=== PATIENT | male | born 2000 | race Caucasian/White ===

== ENCOUNTER 2024-06-03 12:38 | Emergency (ER) | payer OTHER ==
[~2024-06-03] VITALS: Ht 182.9 cm; Wt 97.5 kg
[2024-06-03 12:38] VITALS: BP 131/81; PULSE 79; RESP 18; TEMP 98.2; O2SAT 99
[2024-06-03 13:29] VITALS: BP 140/92; PULSE 62; RESP 18; TEMP 98.2; O2SAT 99
[2024-06-03] MEDS ORDERED: BOOSTRIX IM ONE (14:16)
[2024-06-03] MEDS ORDERED: ANCEF ONE (14:16)
[2024-06-03] MEDS ORDERED: TRIPLE ANTIBIOTIC OINTMENT PKT TP ONE (14:17)
[2024-06-03] MEDS: ANCEF IM STA (14:28)
[2024-06-03] MEDS: BOOSTRIX IM ONE (14:28)
== END 2024-06-03 14:40 | disposition home or self-care (01) ==
LOC: ER 12:38
DX: S61.211A Laceration without foreign body of left index finger without damage to nail, initial encounter (principal); W26.0XXA Contact with knife, initial encounter; Y93.89 Activity, other specified; Y92.89 Other specified places as the place of occurrence of the external cause; Y99.0 Civilian activity done for income or pay
CPT/HCPCS: 99284; 90471; 12002; 90715; 96372; A4649; J0690

== ENCOUNTER 2024-06-16 10:51 | Emergency (ER) | payer OTHER ==
[~2024-06-16] VITALS: Ht 182.9 cm; Wt 95.3 kg
[2024-06-16 11:01] VITALS: BP 138/73; PULSE 82; RESP 18; TEMP 98.2; O2SAT 100
[2024-06-16 11:51] VITALS: BP 126/68; PULSE 72; RESP 18; O2SAT 100
== END 2024-06-16 11:51 | disposition home or self-care (01) ==
LOC: ER 10:51
DX: S61.412D Laceration without foreign body of left hand, subsequent encounter (principal); Z48.02 Encounter for removal of sutures; X58.XXXD Exposure to other specified factors, subsequent encounter
CPT/HCPCS: 99281